=== PATIENT | female | born 1960 | race Caucasian/White ===

== ENCOUNTER 2017-11-06 09:53 | Outpatient (CLI) | payer OTHER ==
[2017-11-06 11:05] LABS: #Eosinphils 0.3 thou/uL (0.0-0.7); #Lymphocytes 1.9 thou/uL (1.20-3.40); #Monocytes 0.5 thou/uL (0.11-0.59); #Neutrophils 2.4 thou/uL (1.40-6.50); %Basophils 0.3 % (0.0-1.0); %Eosinophils 6.3 % (0.0-10.0); %Lymphocytes 36.7 % (21.0-51.0); %Monocytes 10.4 % (0.0-10.0); %Neutrophils 46.2 % (42.0-75.0); Hemoglobin 12.2 g/dL (12.0-16.0); Mean Corpuscular HGB CONC 33.4 g/dL (32.0-36.0); Mean Corpuscular Hemoglobin 33.4 pg (27.0-31.0); Mean Platelet Volume 7.3 fL (7.4-10.4); Platelet Count 196 thou/uL (130-400); RBC Distribution Width 12.2 % (11.5-14.5); Red Blood Cell (RBC) Count 3.66 mill/uL (4.20-5.40); White Blood Cell (WBC) Count 5.2 thou/uL (4.8-10.8)
[2017-11-06 11:20] LABS: Anion Gap 11 mmol/L (10-20); BUN (Urea Nitrogen) 19 mg/dL (9.8-20.1); Calc. Creatinine Clearance 0 mL/min (70-130); Calcium 10.2 mg/dL (7.8-10.44); Carbon Dioxide 28 mmol/L (22-29); Chloride 106 mmol/L (98-107); Estimated GFR-MDRD 78; Glucose 99 mg/dL (70-105); Potassium 4.1 mmol/L (3.5-5.1); Sodium 141 mmol/L (136-145)
--- NOTE | 2017-11-06 21:08 | EKG ---
Test Reason : Blood Pressure : / mmHG Vent. Rate : 065 BPM Atrial Rate : 065 BPM P-R Int : 144 ms QRS Dur : 090 ms QT Int : 404 ms P-R-T Axes : 023 -01 031 degrees QTc Int : 420 ms Normal sinus rhythm Low voltage QRS Borderline ECG When compared with ECG of 25-MAY-2017 12:17, No significant change was found Confirmed by AUBREY TELLO ([id number]) on 11/06/2017 9:08:41 PM Referred By: DEBBIE Confirmed By:AUBREY TELLO
== END 2017-11-06 09:54 | disposition home or self-care (01) ==
LOC: LABBT 09:53
PROVIDERS: ATTEND Specialist
DX: Z01.818 Encounter for other preprocedural examination (principal); C50.911 Malignant neoplasm of unspecified site of right female breast
CPT/HCPCS: 80048; 85025; 93005; 93010

== ENCOUNTER 2017-11-12 12:57 | Outpatient (CLI) | payer OTHER | END 2017-11-12 12:58 | disposition home or self-care (01) | LOC: ULT 12:57 | PROVIDERS: ATTEND Internal Medicine Hematology & Oncology | DX: Z51.11 Encounter for antineoplastic chemotherapy (principal); I08.1 Rheumatic disorders of both mitral and tricuspid valves; C50.919 Malignant neoplasm of unspecified site of unspecified female breast; Z79.899 Other long term (current) drug therapy | CPT/HCPCS: 93306 ==

== ENCOUNTER 2017-11-13 07:23 | Inpatient (IN) | payer OTHER ==
[2017-11-06 10:10] VITALS: BMI 31.1
--- NOTE | 2017-11-13 08:32 | NM ---
RIGHT BREAST LYMPHOSCINTIGRAPHY: HISTORY: Right breast cancer. RADIOPHARMACEUTICAL: 400 mCi Technetium 99m filtered sulfur colloid injected in the right periareolar region in divided do ses. FINDINGS: Planar imaging of the head, neck, chest, and axilla was performed. There are 2 foci of increased uptake in the right axilla. No tracer localization is seen in the inte rnal mammary or left axillary lymph gunjan chains. IMPRESSION: [place] lymph node (S) in the right axilla. POS: DUYEN
[2017-11-13] MEDS ORDERED: Ketorolac Tromethamine 30 MG/ML VIAL ONE (09:11)
[2017-11-13] MEDS ORDERED: Midazolam HCl 2 mg/2 ml Vial ONE ×2 (09:11→09:24)
[2017-11-13] MEDS ORDERED: CEFAZOLIN/Water 2 GM/20 ML SYRINGE ONE (09:11)
[2017-11-13] MEDS ORDERED: Fentanyl 100 MCG/2 ML VIAL ONE ×2 (09:24→13:55)
[2017-11-13] MEDS ORDERED: Bupivacaine 0.25% HCL 30 ML VIAL ONE (09:28)
[2017-11-13] MEDS ORDERED: Isosulfan Blue 50 MG/5 ML VIAL ONE (09:28)
[2017-11-13] MEDS ORDERED: Lidocaine 2% w/Epinephrine 1:200K 20 ML VIAL ONE (09:28)
[2017-11-13] MEDS ORDERED: Morphine Sulfate 2 MG/ML SYRINGE SLOW IVP PRN (12:53)
[2017-11-13] MEDS ORDERED: Promethazine HCl 25 MG/ML VIAL SLOW IVP PRN (12:53)
[2017-11-13] MEDS ORDERED: HYDROmorphone 2 MG/ML VIAL SLOW IVP PRN (12:53)
[2017-11-13] MEDS ORDERED: Meperidine HCl/PF 25 MG/ML VIAL SLOW IVP PRN (12:53)
[2017-11-13] MEDS ORDERED: D5 1/2 NS w/20 mEq KCL 1,000 ML ONE (14:00)
[2017-11-13] MEDS ORDERED: Dextrose 5% in Water 1,000 ML IV PRN (14:47)
[2017-11-13] MEDS ORDERED: hydrALAZINE 20 MG/ML VIAL SLOW IVP PRN (14:47)
[2017-11-13] MEDS ORDERED: HYDROcodone/Acetaminophen 7.5/325 mg Tablet PO PRN ×2 (14:47)
[2017-11-13] MEDS ORDERED: Promethazine HCl 25 MG/ML VIAL IM PRN (14:47)
[2017-11-13] MEDS ORDERED: Dextrose 50% Abboject 50 ML SYRINGE SLOW IVP PRN (14:47)
[2017-11-13] MEDS ORDERED: Ondansetron HCl/PF 4 MG/2 ML Vial IVP PRN (14:47)
[2017-11-13] MEDS ORDERED: Ondansetron HCl/PF 4 MG/2 ML Vial ONE (14:53)
[2017-11-13] MEDS ORDERED: PHENYLEPHRINE-NS 100 MCG/ML 10 ML SYRINGE ONE (14:53)
[2017-11-13] MEDS ORDERED: Propofol 200 MG/20 ML VIAL ONE (14:53)
[2017-11-13] MEDS ORDERED: Dexamethasone 20 MG/5 ML VIAL ONE (14:53)
[2017-11-13] MEDS ORDERED: ePHEDrine/0.9% NaCl/PF SYRINGE 50 mg/10 ml ONE (14:53)
[2017-11-13] MEDS ORDERED: Succinylcholine Chloride 20 MG/ML 10 ml SYRINGE FS ONE (14:53)
[2017-11-13] MEDS ORDERED: Lidocaine 1% PF 5 ML VIAL ONE (14:53)
[2017-11-13] MEDS ORDERED: Morphine 5 MG/ML SYRINGE SLOW IVP PRN ×2 (14:59)
[2017-11-13] MEDS: D5 1/2 NS w/20 mEq KCL 1,000 ML IV SCH (15:32)
[2017-11-13] MEDS: Ketorolac Tromethamine 30 MG/ML VIAL IVP SCH (18:06)
[2017-11-13] MEDS: Famotidine 20 MG TAB PO SCH (21:26)
[2017-11-13] MEDS: Docusate 100 MG CAP PO SCH (21:26)
[2017-11-14] MEDS: Ketorolac Tromethamine 30 MG/ML VIAL IVP SCH ×2 (00:12→06:20)
[2017-11-14 05:52] LABS: #Eosinphils 0.1 thou/uL (0.0-0.7); #Lymphocytes 1.8 thou/uL (1.20-3.40); #Monocytes 0.7 thou/uL (0.11-0.59); #Neutrophils 3.5 thou/uL (1.40-6.50); %Basophils 0.1 % (0.0-1.0); %Eosinophils 1.1 % (0.0-10.0); %Monocytes 10.7 % (0.0-10.0); Hemoglobin 9.6 g/dL (12.0-16.0); Mean Corpuscular HGB CONC 33.5 g/dL (32.0-36.0); Mean Corpuscular Hemoglobin 33.4 pg (27.0-31.0); Mean Corpuscular Volume 99.8 fl (81.0-99.0); Mean Platelet Volume 7.7 fL (7.4-10.4); Platelet Count 170 thou/uL (130-400); RBC Distribution Width 12.1 % (11.5-14.5); Red Blood Cell (RBC) Count 2.88 mill/uL (4.20-5.40)
[2017-11-14] MEDS: D5 1/2 NS w/20 mEq KCL 1,000 ML IV SCH (05:57)
[2017-11-14] MEDS: Docusate 100 MG CAP PO SCH (08:54)
[2017-11-14] MEDS: Famotidine 20 MG TAB PO SCH (08:54)
[2017-11-14] MEDS ORDERED: Multivit, Therapeutic 1 TAB PO SCH (09:00)
[2017-11-14] MEDS ORDERED: Ferrous Sulfate 325 MG TAB PO SCH (12:00)
[2017-11-14 12:05] VITALS: BP 122/78; TEMP 97.4
[2017-11-14 14:03] LABS: Hemoglobin 10.5 g/dL (12.0-16.0)
--- NOTE | 2017-11-15 05:55 | OP ---
DATE OF OPERATION: 11/13/2017 PREOPERATIVE DIAGNOSIS: Multifocal right breast cancer. POSTOPERATIVE DIAGNOSIS: Multifocal right breast cancer. OPERATION PERFORMED: Bilateral simple mastectomy with right sentinel lymph node biopsy and left subc lavian MediPort removal. SURGEON: Justin Up M.D. ANESTHESIA: General endotracheal. INDICATIONS: Patient is a 56-year-old white female. She presented several months ago with ultrasoun d proven multifocal right breast cancer. 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 She has undergone a course o f neoadjuvant chemotherapy. She has had improvement in regards to the malignancy, although there is still a palpable area about the 5 o'clock radian. She is taken to the operating room at this time fo r bilateral mastectomy, which she selected for symmetry reasons. She has elected against reconstruct ion at this time. She underwent preoperative lymphoscintigraphy revealing right axillary sentinel ly mph nodes. DESCRIPTION OF OPERATION: Informed consent was obtained, patient was taken to the operating room whe re general endotracheal anesthesia was obtained with patient in supine position. A 3 mL of isosulfan blue was infiltrated in the periareolar subdermal tissue and the breast was massaged for five minute s. Both breasts and axilla were then prepped with ChloraPrep and draped in sterile fashion. Attenti on was turned first to the right axilla. The mastectomy incision was created in a semi-elliptical fa shion across the right breast. In the lateral aspect of the incision, dissection was carried over to wards the axilla and the superficial axillary fascia was incised. Neoprobe was utilized to identify areas of maximum radio intensity. I was able to identify two dominant sentinel lymph nodes. Each of these had significant radioactivity and blue staining. These were each dissected and all investing lymphatics were divided between clamps and 3-0 silk ties. Hemostasis was meticulous. The touch prep on both of these lymph nodes was negative. Attention was then turned to the left breast. A semi-elliptical incision was created across the left breast, attempting to minimize any skin redundancy. Dissection was carried through skin and subcuta neous tissue. All dissection was carried out using the plasma blade. Flaps were raised superiorly, medially, and inferiorly. The breast was swept off the chest wall in a medial to lateral fashion. T he breast was dissected free from axillary contents and the breast was removed intact. It was tagged for orientation and submitted to pathology. Meticulous hemostasis was obtained using the electrocau taya. The wound was irrigated with saline. The wound was closed in layers using 3-0 Vicryl to appro ximate the deep layers and skin danielle to approximate the skin edges. A #19 round fluted drain was placed within the wound prior to closure and secured with a 3-0 nylon suture. Attention was then returned to the right breast. The dissection was carried out in an identical [facility] ion on the right as it had already been done on the left. The only difference was that inferiorly, a t about the 5 o'clock radian, I was able to palpate the malignancy and it was relatively superficial. I immediately underneath the skin in an attempt to obtain negative margins. I tagged the ski n overlying the area of the prior malignancy with a couple of small Hemoclips. The breast was then s wept off the chest wall in a medial to lateral fashion. Again, no effort was made to dissect further axillary contents and the breast tissue was from the axillary tissue to avoid unnecessary dissection. The specimen was passed off the field. Wound was irrigated with sterile water and hemos tasis obtained meticulously. The skin edges were carefully tailored to avoid skin redundancy. On th e left hand side, I had created a dog ear correction that extended inferiorly so on the right hand si de, I created a dog ear correction that extended superiorly on the medial aspect. Redundant axillary tissue was excised as well. The wound was closed again with 3-0 Vicryl and skin danielle. Each side was dressed similarly with Xeroform gauze over the staple line and fluffed gauze across the chest wall, held in place with a 6-inch Ken wrap. Sterile occlusive dressing was placed over each d rain site. There were no complications. Patient tolerated the procedure well and was taken to [facility] in stable condition.
[2017-11-18] MEDS ORDERED: Ibuprofen 600 MG TAB PO PRN (18:00)
== END 2017-11-14 15:53 | disposition home or self-care (01) | DRG 581 ==
LOC: SDC 07:23 → SURG A 13:19
PROVIDERS: ADMIT Specialist; ATTEND Specialist
PROC: 0HTV0ZZ Resection of Bilateral Breast, Open Approach (ICD-10-PCS; principal; 2017-11-13)
PROC: 07B50ZX Excision of Right Axillary Lymphatic, Open Approach, Diagnostic (ICD-10-PCS; 2017-11-13)
PROC: 0HBV0ZX Excision of Bilateral Breast, Open Approach, Diagnostic (ICD-10-PCS; 2017-11-13)
DX: C50.911 Malignant neoplasm of unspecified site of right female breast (principal)
CPT/HCPCS: 36415; 78195; 85025; 88307; 88309; 88333; 88334; 88342; 93306; J2270; A9541; J0131; J1100; J1885; J2001; J2250; J2405; J2704; J3010; Q9968; S0020

== ENCOUNTER 2018-02-06 14:25 | Outpatient (CLI) | payer OTHER | END 2018-02-06 14:26 | disposition home or self-care (01) | LOC: ULT 14:25 | PROVIDERS: ATTEND Internal Medicine Hematology & Oncology | DX: C50.311 Malignant neoplasm of lower-inner quadrant of right female breast (principal); I08.8 Other rheumatic multiple valve diseases | CPT/HCPCS: 93306 ==

== ENCOUNTER 2018-03-29 13:01 | Outpatient (CLI) | payer OTHER | END 2018-03-29 13:02 | disposition home or self-care (01) | LOC: ULT 13:01 | PROVIDERS: ATTEND Internal Medicine Hematology & Oncology | DX: C50.919 Malignant neoplasm of unspecified site of unspecified female breast (principal); I08.3 Combined rheumatic disorders of mitral, aortic and tricuspid valves | CPT/HCPCS: 93306 ==

== ENCOUNTER 2021-12-02 08:30 | Outpatient (CLI) | payer OTHER ==
[2021-12-02] MEDS ORDERED: Iopamidol 370 76% 100 ML VIAL ONE (11:07)
== END 2021-12-02 08:31 | disposition home or self-care (01) ==
LOC: CT 08:30
PROVIDERS: ATTEND Internal Medicine Hematology & Oncology
DX: C50.311 Malignant neoplasm of lower-inner quadrant of right female breast (principal)
CPT/HCPCS: 71260; 74177; 78306; 82565; A9503; Q9967

== ENCOUNTER 2021-12-05 08:35 | Outpatient (CLI) | payer OTHER ==
[2021-12-05 10:21] LABS: #Eosinphils 0.1 10x3/uL (0.0-0.5); #Monocytes 0.7 10x3/uL (0.0-1.1); #Neutrophils 2.7 10x3/uL (1.5-8.4); %Basophils 0.8 % (0.0-2.0); %Eosinophils 1.6 % (0.0-6.0); %Lymphocytes 30.2 % (18.0-47.0); %Monocytes 13.7 % (0.0-10.0); %Neutrophils 53.5 % (40.0-75.0); Hemoglobin 13.2 g/dL (12.0-15.5); Mean Corpuscular HGB CONC 32.6 g/dL (32.0-36.0); Mean Platelet Volume 9.7 fl (7.4-10.4); Platelet Count 289 10x3/uL (150-450); Red Blood Cell (RBC) Count 4.55 10x6/uL (3.90-5.03)
[2021-12-05 10:43] LABS: Anion Gap 15 mmol/L (10-20); BUN (Urea Nitrogen) 11 mg/dL (9.8-20.1); Calc. Creatinine Clearance 0 mL/min (70-130); Calcium 10.2 mg/dL (7.8-10.44); Carbon Dioxide 28 mmol/L (23-31); Chloride 105 mmol/L (98-107); Glucose 100 mg/dL (80-115); Potassium 4.2 mmol/L (3.5-5.1); Sodium 144 mmol/L (136-145)
[2021-12-06 00:04] LABS: SARS-CoV-2 PCR by NAA Not Detected (NotDetected)
== END 2021-12-05 08:36 | disposition home or self-care (01) ==
LOC: LABBT 08:35
PROVIDERS: ATTEND Specialist
DX: Z01.818 Encounter for other preprocedural examination (principal); Z85.3 Personal history of malignant neoplasm of breast; Z20.822 Contact with and (suspected) exposure to COVID-19
CPT/HCPCS: 80048; 85025; 93005; 93010; U0003; U0005

== ENCOUNTER 2021-12-08 09:25 | Day surgery (SDC) | payer OTHER ==
[2021-12-05 12:52] VITALS: BMI 31.1
[2021-12-08] MEDS ORDERED: Ketorolac Tromethamine 30 MG/ML VIAL ONE (10:08)
[2021-12-08] MEDS ORDERED: Acetaminophen 500 MG TAB ONE (10:08)
[2021-12-08] MEDS ORDERED: Isosulfan Blue 50 MG/5 ML VIAL ONE (12:11)
[2021-12-08] MEDS ORDERED: Bupivacaine 0.25% HCL 30 ML VIAL ONE (12:11)
[2021-12-08] MEDS ORDERED: Lidocaine 1% w/Epinephrine 1:100K 30 ML VIAL ONE (12:11)
[2021-12-08] MEDS ORDERED: Fentanyl 100 MCG/2 ML VIAL ONE (12:13)
[2021-12-08] MEDS ORDERED: ceFAZolin 2 GM/Dextrose 50 ML IVPB ONE (12:16)
[2021-12-08] MEDS ORDERED: PROPOFOL 200 MG/20 ML VIAL ONE (12:36)
[2021-12-08] MEDS ORDERED: Lidocaine 1% PF 5 ML VIAL ONE (12:36)
[2021-12-08] MEDS ORDERED: Ondansetron PF 4 MG/2 ML Vial ONE (12:36)
[2021-12-08] MEDS ORDERED: Dexamethasone 20 MG/5 ML VIAL ONE (12:36)
[2021-12-08] MEDS ORDERED: Bacitracin Zinc Ointment 30 gm TUBE ONE (13:16)
== END 2021-12-08 14:58 | disposition home or self-care (01) ==
LOC: SDC 09:25
PROVIDERS: ATTEND Specialist
PROC: 0WB80ZZ Excision of Chest Wall, Open Approach (ICD-10-PCS; principal; 2021-12-08)
DX: C50.811 Malignant neoplasm of overlapping sites of right female breast (principal); Z17.1 Estrogen receptor negative status [ER-]; Z91.040 Latex allergy status; Z91.048 Other nonmedicinal substance allergy status; Z90.13 Acquired absence of bilateral breasts and nipples
CPT/HCPCS: 88305; 88341; 88342; C1713; J0690; J1100; J1885; J2405; J2704; J3010; Q9968; S0020